=== PATIENT | female | born 1970 | race Asian ===

== ENCOUNTER 2020-05-12 08:09 | Day surgery (SDC) | payer OTHER, SELFPAY ==
[~2020-05-12] VITALS: Ht 154.9 cm; Wt 44.5 kg
[2020-05-12] MEDS ORDERED: fentaNYL citrate 0.05 MG/ML VIAL ONE (10:23)
[2020-05-12] MEDS ORDERED: LIDOCAINE 2% 100 MG/5 ML UJET TP ONE ×2 (10:23→12:50)
[2020-05-12] MEDS ORDERED: SIMETHICONE 40 MG/0.6 ML ONE (12:43)
[2020-05-12] MEDS ORDERED: fentaNYL citrate 0.05 MG/ML VIAL IVP ONE (12:50)
== END 2020-05-12 12:37 | disposition home or self-care (01) ==
LOC: MDS 08:09 → MMU 08:09 → MDS 12:37
PROVIDERS: ATTEND Internal Medicine Gastroenterology
DX: Z12.11 Encounter for screening for malignant neoplasm of colon (principal); K63.5 Polyp of colon; Z20.828 Contact with and (suspected) exposure to other viral communicable diseases
CPT/HCPCS: 45385; 81025; J3010; U0003